=== PATIENT | female | born 1980 | race Caucasian/White ===

== ENCOUNTER 2019-04-22 15:30 | Emergency (ER) | payer BC, SELFPAY ==
[2019-04-22 16:55] VITALS: BP 141/82; PULSE 91; RESP 18; TEMP 37.6; O2SAT 99
--- NOTE | 2019-04-22 17:59 | ED.GENADULT ---
HPI - General Adult General Chief complaint: Upper Respiratory Infection Stated complaint: Swollen throat Time Seen by Provider: 04/22/19 17:59 Source: patient Mode of arrival: ambulatory Limitations: no limitations History of Present Illness HPI narrative: 38-year-old female patient presents to the [facility] with complaints of sore throat symptoms for the past 5 days. Patient states she started running a fever about 3 days ago. Patient states she is also had a lot of nasal drip and thought it could be her sinuses so she has been taking some [id number] sinus medication. Patient denies any coughing, chest pain or shortness of breath. Related Data Home Medications Medication Instructions Recorded Confirmed albuterol sulfate 90 mcg/actuation 1 puff INHALATION Q4H PRN 01/21/19 01/22/19 aerosol inhaler lansoprazole 15 mg capsule,delayed 15 mg PO DAILY 01/21/19 01/22/19 release loratadine 10 mg tablet 10 mg PO DAILY 01/21/19 01/22/19 trazodone 50 mg tablet 50 mg PO DAILY tablet 01/21/19 01/22/19 Allergies Allergy/AdvReac Type Severity Reaction Status Date / Time azithromycin Allergy Unknown Verified 01/27/15 09:31 clarithromycin Allergy Unknown Verified 01/27/15 09:30 Review of Systems Review of Systems: Narrative: CONSTITUTIONAL: Positive subjective fever, denies chills, or sweats. EYES: Denies visual changes, redness, or discharge. ENT: Positive rhinorrhea, denies congestion, positive sore throat, denies otalgia. CARDIOVASCULAR: Denies chest pain, palpitations, or edema. RESPIRATORY: Denies cough or dyspnea. GASTROINTESTINAL: Denies abdominal pain, nausea, vomiting, or diarrhea. GENITOURINARY: Denies dysuria or hematuria. SKIN: Denies rash or itching. MUSCULOSKELETAL: Denies back pain, joint pain, or myalgia. NEUROLOGIC: Denies headache, numbness, or weakness. PSYCHIATRIC: Denies anxiety or depression. [facility] Family History Family History Father Family history of elevated blood lipids Social History Social History Smoking status: Never smoker Alcohol intake: never Comments At the time of my signature I agree with nursing past medical history, surgical, social, and family history. There is no relevant family history pertinent to the presenting complaint. Exam Narrative: Exam Narrative: GENERAL: Well-appearing, well-nourished, and in no acute distress. HEAD: Normocephalic, atraumatic. EYES: PERRLA and EOMI. ENT: Nares clear, no rhinorrhea or epistaxis. Mucous membranes moist. Posterior pharynx with slight erythema no tonsil enlargement no exudates or lesions present. Bilateral TMs are clear with no erythema or foreign bodies canal NECK: Supple. No lymphadenopathy CHEST: Clear to auscultation. No respiratory distress. HEART: Regular rate and rhythm. No murmur heard. Normal peripheral pulses. ABDOMEN: Soft, nontender, nondistended, normal active bowel sounds. EXTREMITIES: Normal range of motion. No edema. SKIN: Warm, dry, no rash. NEURO: No focal deficits. Alert and oriented x3. Course Vital Signs Vital signs: Vital Signs Temperature 37.6 C 04/22/19 16:55 Pulse Rate 91 04/22/19 16:55 Respiratory Rate 18 04/22/19 16:55 Blood Pressure 141/82 H 04/22/19 16:55 Pulse Oximetry 99 04/22/19 16:55 Temperature 37.6 C 04/22/19 16:55 Pulse Rate 91 04/22/19 16:55 Respiratory Rate 18 04/22/19 16:55 Blood Pressure 141/82 H 04/22/19 16:55 Pulse Oximetry 99 04/22/19 16:55 Vital signs reviewed. The patient has been informed that they may have pre-hypertension or Hypertension based on a BP reading in the department. I recommend that the patient call the primary care provider listed on their discharge instructions or a physician of their choice this week to arrange follow up for further evaluation of possible pre-hypertension or Hypertension Medical Decision Making
== END 2019-04-22 18:14 | disposition home or self-care (01) ==
PROVIDERS: Emergency Provider Nurse Practitioner Family; PCP Internal Medicine
DX: J02.0 Streptococcal pharyngitis (principal); K21.9 Gastro-esophageal reflux disease without esophagitis
CPT/HCPCS: 87880; 99213; G0463

== ENCOUNTER 2021-09-20 15:36 | Emergency (ER) | payer BC, SELFPAY ==
[2021-09-20 15:46] VITALS: BP 145/96; PULSE 73; RESP 18; TEMP 36.8; O2SAT 99
--- NOTE | 2021-09-20 15:56 | ED.SOB ---
HPI - SOB/Dyspnea General Chief Complaint: Upper Respiratory Infection Stated Complaint: Bad Asthma Time Seen by Provider: 09/20/21 15:37 Source: patient Mode of arrival: ambulatory Limitations: no limitations History of Present Illness HPI Narrative: Ms. Pollock is a 41-year-old female patient presenting to the clinic today with complaints of asthma attack. She reports that her asthma has been worse since Saturday of last week. She has taken multiple COVID tests and they have all been negative. She reports she is having chest tightness and a nonproductive cough. She denies any fever or chills. She has been using her inhaler without relief Related Data Home Medications Medication Instructions Recorded Confirmed albuterol sulfate 90 mcg/actuation 1 puff inhalation Q4H PRN 01/21/19 09/20/21 aerosol inhaler (ProAir HFA) Shortness Of Breath Or Wheezing lansoprazole 15 mg capsule,delayed 15 mg PO DAILY 01/21/19 09/20/21 release (Prevacid) loratadine 10 mg tablet (Claritin) 10 mg PO DAILY 01/21/19 09/20/21 cetirizine 10 mg tablet (Zyrtec) 10 mg PO DAILY 09/20/21 09/20/21 Allergies Allergy/AdvReac Type Severity Reaction Status Date / Time azithromycin Allergy Unknown Verified 01/27/15 09:31 clarithromycin Allergy Unknown Verified 01/27/15 09:30 Review of Systems Review of Systems: Pertinent positives per HPI. Patient denies any fever, chills, rash, headache, visual changes, dizziness, chest pain, palpitations, nausea, vomiting, diarrhea, constipation, abdominal pain, or any urinary issues. PMFSH Family History Family History Father Family history of elevated blood lipids Social History Social History Smoking status: Never smoker Alcohol intake: never Comments At the time of my signature, I reviewed and agree with the nursing past medical, surgical, social, and family history. There is no relevant family history pertinent to the patient complaint. Exam Narrative: General: Well-developed, well nourished, in no apparent distress Head: Normocephalic, atraumatic Eyes: Pupils equally round and reactive to light bilaterally, EOM intact, sclera and conjunctive clear, no discharge, lids normal Ears: TMs intact and clear, ear canals clear, no drainage, grossly hearing normal. Nose: Nares patent, no discharge, no inflammation, no sinus tenderness. Mouth: Oral pharynx without lesions or masses, good dentition, MMM. Neck: Supple, trachea midline, no enlargement of anterior or posterior cervical nodes, no thyroid masses or goiter palpable. Cardio: Regular rate and rhythm, s1 and s2 normal, no murmur appreciated. Resp: Lung sounds tight, handheld DuoNeb treatment given, after treatment lungs are clear to auscultation bilaterally, no rhonchi, rales, wheezing or rubs Course Course Emergency Course: Portions of this record may have been created with voice recognition software. Level of Care: Express Care Visit Vital Signs Vital signs: Vital Signs Temperature 36.8 C 09/20/21 15:46 Pulse Rate 73 09/20/21 15:46 Respiratory Rate 18 09/20/21 15:46 Blood Pressure 145/96 H 09/20/21 15:46 Pulse Oximetry 99 09/20/21 15:46 Oxygen Delivery Room Air 09/20/21 15:46 Temperature 36.8 C 09/20/21 15:46 Pulse Rate 73 09/20/21 15:46 Respiratory Rate 18 09/20/21 15:46 Blood Pressure 145/96 H 09/20/21 15:46 Pulse Oximetry 99 09/20/21 15:46 Oxygen Delivery Room Air 09/20/21 15:46 Vital signs reviewed MDM - SOB/Dyspnea MDM Narrative Medical decision making narrative: At the time of visit patient is resting comfortably on the exam table. Lung sounds are tight. DuoNeb treatment was given in the clinic. I suspect the patient has asthma exacerbation and will give her a course of prednisone and she is to continue her albuterol inhaler and she voiced understanding
[2021-09-20] MEDS: IPRATROPIUM BR 0.02% INH SOLN 0.5 MG/2.5 ML VIAL INHALATION (16:07)
[2021-09-20] MEDS: ALBUTEROL SULFATE NEB 2.5 MG/3 ML INH INHALATION (16:07)
[2021-09-20 16:10] VITALS: PULSE 74; RESP 20; O2SAT 98
[2021-09-20 16:30] VITALS: PULSE 70; RESP 20; O2SAT 100
== END 2021-09-20 16:38 | disposition home or self-care (01) ==
PROVIDERS: Emergency Provider Nurse Practitioner Family; PCP Internal Medicine
DX: J45.901 Unspecified asthma with (acute) exacerbation (principal); K21.9 Gastro-esophageal reflux disease without esophagitis; M79.7 Fibromyalgia; M41.9 Scoliosis, unspecified
CPT/HCPCS: 94640; 99213; G0463

== ENCOUNTER → 2021-10-27 10:46 | Outpatient (CLI) | payer BC, SELFPAY ==
--- NOTE | ~2021-10-27 | MR_ITS ---
EXAMINATION: MR brain/brain stem wo con DATE: 10/27/2021 11:21 INDICATION: Loss of balance. Headache. TECHNIQUE: Magnetic resonance imaging (MRI) of the brain and brainstem was performed without intraven ous contrast. COMPARISON: None. FINDINGS: There are scattered areas of nonspecific increased T2-weighted signal intensity in the cere bral white matter. There is no intracranial hemorrhage, acute infarction, or abnormal intracranial ma ss lesion. The ventricles are normal in size. The mastoid air cells are normal. The orbits are normal . There is mucosal thickening in left sphenoid sinus. IMPRESSION: 1. Mild nonspecific cerebral white matter disease. The differential diagnosis includes premature delivery and mail sorter linh small vessel ischemic disease (especially if the patient has cardiovascular risk factors), demyel inating disease such as multiple sclerosis, drug abuse, vasculitis, or reactive astrocytosis (gliosis ) secondary to nonspecific etiology. Reviewed, dictated and finalized at location A. IMPRESSION: 1. Mild nonspecific cerebral white matter disease. The differential diagnosis i ncludes premature chronic small vessel ischemic disease (especially if the miguel ent has cardiovascular risk factors), demyelinating disease such as multiple sc lerosis, drug abuse, vasculitis, or reactive astrocytosis (gliosis) secondary t o nonspecific etiology.
== END ==
PROVIDERS: PCP Family Medicine; Visit Provider Family Medicine
DX: R42 Dizziness and giddiness (principal); R93.0 Abnormal findings on diagnostic imaging of skull and head, not elsewhere classified
CPT/HCPCS: 70551

== ENCOUNTER 2021-12-05 16:03 | Outpatient (CLI) | payer BC, SELFPAY ==
[2021-12-05 19:57] LABS: Basophils Absolute Auto 0.1 K/mm3 (0.0-0.1); Basophils Percent Auto 0.9 % (0.2-1.2); Eosinophils Absolute Auto 0.1 K/mm3 (0-0.3); Eosinophils Percent Auto 1.7 % (0-4.4); Hematocrit 44.5 % (37.0-47.0); Immature Granulocyte Absolute 0.02 K/mm3 (0.00-0.031); Immature Granulocyte Percent A 0.2 % (0-0.5); Lymphocytes Absolute Auto 1.94 K/mm3 (0.9-3.2); Lymphocytes Percent Auto 24.1 % (18.3-44.2); Mean Corpuscular HGB Conc 33.7 g/dl (32-36); Mean Corpuscular Hemoglobin 30.2 pg (26-34); Mean Corpuscular Volume 89.5 fl (80-100); Mean Platelet Volume 9.8 fl (7.4-10.4); Monocytes Absolute Auto 0.4 K/mm3 (0.1-0.6); Monocytes Percent Auto 4.5 % (2.6-8.5); Neutrophils Absolute Auto 5.5 K/mm3 (1.3-6.7); Neutrophils Percent Auto 68.6 % (45.5-73.1); Platelet Count Result 223 k/mm3 (150-375); Red Blood Count 4.97 M/mm3 (4.2-5.4); Red Cell Distribution Width 11.9 % (11.5-14.5)
[2021-12-05 20:28] LABS: Alanine Aminotransferase 29 U/L (6-35); Alkaline Phosphatase 67 U/L (38-126); Anion Gap 9 mmol/L (8-16); Aspartate Amino Transferase 23 U/L (14-36); Bilirubin,Total 0.4 mg/dL (0.2-1.3); Blood Urea Nitrogen 10 mg/dL (7-17); Calcium 9.4 mg/dL (8.4-10.2); Carbon Dioxide 26 mmol/L (22-30); Chloride 104 mmol/L (98-107); Cholesterol 189 mg/dL (0-200); Estimated Glomerular Filt Rate > 60; Glucose 96 mg/dL (65-110); HDL Direct 38 mg/dL; LDL Cholesterol Direct 123 mg/dL; Potassium 4.4 mmol/L (3.4-5.0); Sodium 139 mmol/L (137-145); Triglycerides 200 mg/dL (<150)
[2021-12-05 20:51] LABS: Hemoglobin A1C 4.8 % (<5.7)
[2021-12-05 22:49] LABS: Albumin Level 4.8 g/dL (3.5-5.1)
== END 2021-12-05 16:04 | disposition home or self-care (01) ==
LOC: ANHGOSHLAB 16:05
PROVIDERS: PCP Family Medicine; Visit Provider Family Medicine
DX: Z13.228 Encounter for screening for other metabolic disorders (principal); R53.83 Other fatigue; Z13.29 Encounter for screening for other suspected endocrine disorder; Z13.220 Encounter for screening for lipoid disorders; E66.9 Obesity, unspecified
CPT/HCPCS: 36415; 80053; 80061; 83036; 84443; 85025

== ENCOUNTER 2022-03-30 09:01 | Emergency (ER) | payer BC, SELFPAY ==
--- NOTE | 2022-03-30 09:02 | ED.URI ---
HPI - URI/Sore Throat General Chief Complaint: Upper Respiratory Infection Stated Complaint: sinus/breathing Time Seen by Provider: 03/30/22 09:02 Source: patient Mode of arrival: ambulatory Limitations: no limitations History of Present Illness HPI Narrative: Jose is a 41-year-old female patient presenting to the clinic today with complaints sinus congestion/shortness of breath x3 weeks. She reports she has history of asthma. States that she has had upper respiratory infection for the past few weeks and it has gone down into her chest. Rates her shortness of breath a 6/10 currently. States that she did do a breathing treatment this morning. She has a nonproductive cough. She denies any fever or chills. States she is blowing thick clear nasal drainage and denies any sinus pressure. Had COVID back in January. MD elicited complaint: cough, rhinorrhea, nasal congestion and other (Shortness of breath) Related Data Home Medications Medication Instructions Recorded Confirmed cetirizine 10 mg tablet (Zyrtec) 10 mg PO DAILY 09/20/21 03/30/22 cholecalciferol (vitamin D3) 75 75 mcg PO DAILY 01/19/22 03/30/22 mcg (3,000 unit) tablet iron,carbonyl 65 mg-vitamin C 125 1 tablet PO DAILY 01/19/22 03/30/22 mg tablet,delayed release (Vitron-C) Allergies Allergy/AdvReac Type Severity Reaction Status Date / Time azithromycin Allergy Unknown other Verified 03/30/22 09:17 clarithromycin Allergy Unknown Unknown Verified 03/30/22 09:17 Review of Systems Review of Systems: Pertinent positives per HPI. Patient denies any fever, chills, rash, headache, visual changes, dizziness, chest pain, palpitations, nausea, vomiting, diarrhea, constipation, abdominal pain, or any urinary issues. [facility] Family History Family History Father Family history of elevated blood lipids Social History Social History Smoking status: Never smoker Alcohol intake: current Substance use: never Substance use type: does not use Lack of Transportation: No Lack of Food: Never True Current Housing: I Have Housing Concerned About Future Housing: No Difficulty Paying Gas/Electric Bills: No Difficulty Paying for Meds: No Currently Unemployed: No Education: Bachelor's Degree Difficulty w/ Childcare or Family Care: No Living arrangements: with family Occupation/Education: occupation Gender identity (if verbalized by the patient): Female Agree to blood products: Yes Comments At the time of my signature, I reviewed and agree with the nursing past medical, surgical, social, and family history. There is no relevant family history pertinent to the patient complaint. Exam Narrative: General: Well-developed, well nourished, in no apparent distress Head: Normocephalic, atraumatic Eyes: Pupils equally round and reactive to light bilaterally, EOM intact, sclera and conjunctive clear, no discharge, lids normal Ears: TMs intact and clear, ear canals clear, no drainage, grossly hearing normal. Nose: Nares patent,clear nasal discharge, no inflammation, no sinus tenderness. Mouth: Oral pharynx without lesions or masses, good dentition, MMM. Postnasal drip Neck: Supple, trachea midline, no enlargement of anterior or posterior cervical nodes, no thyroid masses or goiter palpable. Cardio: Regular rate and rhythm, s1 and s2 normal, no murmur appreciated. Resp: Diminished in the bases otherwise clear, no rhonchi, rales, wheezing or rubs Course Course Emergency Course: Portions of this record may have been created with voice recognition software. Level of Care: Express Care Visit Vital Signs Vital signs: Vital Signs Temperature 36.8 C 03/30/22 09:09 Pulse Rate 82 03/30/22 09:09 Respiratory Rate 16 03/30/22 09:09 Blood Pressure 141/86 H 03/30/22 09:09 Pulse Oximetry 100 03/30/22 09:09 O
[2022-03-30 09:09] VITALS: BP 141/86; PULSE 82; RESP 16; TEMP 36.8; O2SAT 100
== END 2022-03-30 09:25 | disposition home or self-care (01) ==
PROVIDERS: Emergency Provider Nurse Practitioner Family; PCP Family Medicine
DX: J06.9 Acute upper respiratory infection, unspecified (principal); J45.901 Unspecified asthma with (acute) exacerbation
CPT/HCPCS: 99213; G0463

== ENCOUNTER 2022-05-11 12:01 | Emergency (ER) | payer BC, SELFPAY ==
[2022-05-11 12:09] VITALS: BP 134/83; PULSE 78; RESP 12; TEMP 36.4; O2SAT 100
--- NOTE | 2022-05-11 12:09 | ED.URI ---
HPI - URI/Sore Throat General Chief Complaint: Upper Respiratory Infection Stated Complaint: sinus pressure, cough,congestion,headache Source: patient and RN notes reviewed Mode of arrival: ambulatory Limitations: no limitations History of Present Illness HPI Narrative: 42 y/o female presented for c/o chest congestion for about 3 days, endorses occasional lung tightness r/t hx asthma. Pt also reports sinus congestion and drainage with dry cough for about one week. Pt tested negative for covid at home 3 days ago. Patient has albuterol inhaler, nebulizer machine, she uses Flonase and saline nasal spray, as well as antihistamines due to history of allergies and asthma. She denies wheezing, dizziness, chest pain, lethargy, fevers or chills. MD elicited complaint: cough Related Data Home Medications Medication Instructions Recorded Confirmed cetirizine 10 mg tablet (Zyrtec) 10 mg PO DAILY 09/20/21 05/11/22 cholecalciferol (vitamin D3) 75 75 mcg PO DAILY 01/19/22 05/11/22 mcg (3,000 unit) tablet iron,carbonyl 65 mg-vitamin C 125 1 tablet PO DAILY 01/19/22 05/11/22 mg tablet,delayed release (Vitron-C) Allergies Allergy/AdvReac Type Severity Reaction Status Date / Time azithromycin Allergy Unknown other Verified 03/30/22 09:17 clarithromycin Allergy Unknown Unknown Verified 03/30/22 09:17 Review of Systems Review of Systems: CONSTITUTIONAL: Denies malaise, chills, sweats, fever EYES: Denies visual changes, redness, or discharge ENT: Reports rhinorrhea, congestion, sinus pain, denies otalgia, sore throat CARDIOVASCULAR: Denies chest pain, palpitations, edema RESPIRATORY: Reports cough, post nasal drainage. Denies dyspnea GASTROINTESTINAL: Denies abdominal pain, nausea, vomiting, diarrhea SKIN: Denies rash or itching MUSCULOSKELETAL: Denies myalgia NEUROLOGIC: Denies headache PMFSH Past Medical History Medical History Mild persistent asthma Family History Family History Father Family history of elevated blood lipids Social History Social History Smoking status: Never smoker Alcohol intake: current Substance use: never Substance use type: does not use Lack of Transportation: No Lack of Food: Never True Current Housing: I Have Housing Concerned About Future Housing: No Difficulty Paying Gas/Electric Bills: No Difficulty Paying for Meds: No Currently Unemployed: No Education: Bachelor's Degree Difficulty w/ Childcare or Family Care: No Living arrangements: with family Occupation/Education: occupation Gender identity (if verbalized by the patient): Female Agree to blood products: Yes Exam Narrative: GENERAL: well-appearing HEAD: Normocephalic EYES: PERRLA, conjunctivae clear ENT: Mucous membranes moist. TM pearly sanchez with dull light reflex bilaterally; no tragal tenderness. Oropharynx normal without lesions or exudate NECK: Supple. No lymphadenopathy CHEST: Clear to auscultation, breath sounds equal. No wheezing, rhonchi, rales, or stridor. No respiratory distress, speaks in full sentences. HEART: Regular rate and rhythm. No murmur heard. SKIN: Warm, dry, no rash. NEURO: Alert and oriented x3. PSYCH: Normal mood and affect Course Course Emergency Course: Patient is aware of diagnosis, understands and agrees to treatment plan. Anticipatory guidance given. Patient agrees to follow-up as directed and is aware of reasons to seek care at the emergency department. Portions of this record may have been created with voice recognition software Level of Care: Express Care Visit Vital Signs Vital signs: reviewed MDM - URI/Sore Throat MDM Narrative Medical decision making narrative: Given hx will send Rx steroid. Advised supportive measures and signs/symptoms to go to the ER. Pt is appropriate fo
== END 2022-05-11 12:30 | disposition home or self-care (01) ==
PROVIDERS: Emergency Provider Nurse Practitioner Family; PCP Internal Medicine
DX: J06.9 Acute upper respiratory infection, unspecified (principal)
CPT/HCPCS: 99213; G0463

== ENCOUNTER 2022-06-14 15:47 | Outpatient (CLI) | payer BC, SELFPAY ==
[2022-06-14 20:31] LABS: Kit Draw Collected
== END 2022-06-14 15:48 | disposition home or self-care (01) ==
LOC: ANHGOSHLAB 15:48
PROVIDERS: PCP Internal Medicine; Visit Provider Clinical Nurse Specialist
DX: E55.9 Vitamin D deficiency, unspecified (principal); M79.7 Fibromyalgia
CPT/HCPCS: 36415

== ENCOUNTER 2022-07-11 15:33 | Outpatient (CLI) | payer BC, SELFPAY ==
--- NOTE | ~2022-07-11 | MM_ITS ---
EXAMINATION: MM screening lupe BI w markel HISTORY: Screening mammogram TECHNIQUE: Craniocaudal and mediolateral oblique 3-D tomosynthesis images were obtained and synthetic 2-D images were generated. CAD analysis was submitted and interpreted. COMPARISON: None, baseline BREAST PARENCHYMAL COMPOSITION: The breasts are extremely dense, which lowers the sensitivity of mamm ography. FINDINGS: No suspicious mass, calcification, or architectural distortion are identified in either indio ast to suggest malignancy. IMPRESSION: 1. No mammographic evidence of malignancy. 2. Recommend routine screening mammography in one year. BI-RADS Category 1: Negative Reviewed, dictated and finalized at location A.
== END 2022-07-11 15:34 | disposition home or self-care (01) ==
LOC: ANHIMG 15:36
PROVIDERS: PCP Internal Medicine; Visit Provider Surgery Plastic and Reconstructive Surgery
DX: Z12.31 Encounter for screening mammogram for malignant neoplasm of breast (principal)
CPT/HCPCS: 77063; 77067

== ENCOUNTER 2022-07-18 16:04 | Emergency (ER) | payer BC, SELFPAY ==
[2022-07-18 16:10] VITALS: BP 127/82; PULSE 82; RESP 16; TEMP 36.4; O2SAT 99
--- NOTE | 2022-07-18 16:40 | ED.URI ---
HPI - URI/Sore Throat General Chief Complaint: Upper Respiratory Infection Stated Complaint: SINUS/ALLERGIES/ASTHMA/EARS Time Seen by Provider: 07/18/22 16:32 Source: patient, RN notes reviewed and old records reviewed Mode of arrival: ambulatory Limitations: no limitations History of Present Illness HPI Narrative: 42 year old female who presents to [facility] care with complaints of sinus congestion, drainage, sore throat , chest tightness with breathing and ear pain for the past 10 days. Patient reports that she was diagnosed with COVID on June 29 and those symptoms resolved and then her other symptoms started. Patient does have history of asthma and has been using her inhaler and nebulizer, taking Claritin, Mucinex and also NyQuil. Patient reports that her cough is dry, nasal congestion and drainage and post nasal drainage noted making her throat sore especially in the mornings. Patient reports pressure to ear especially her left ear with no ear drainage noted. Patient denies any known fevers, body aches, or any headaches, no nausea, vomiting, or diarrhea. MD elicited complaint: rhinorrhea, nasal congestion, sinus pain and other (ear pain pressure) Pertinent past history: asthma and seasonal allergies Onset (ago): day(s) (10) Pain scale (0-10): 7 Able to tolerate fluids by mouth: Yes Treatments prior to arrival: other (inhaler and nebulizer, Claritin,Mucinex and NyQuil) Related Data Home Medications Medication Instructions Recorded Confirmed cetirizine 10 mg tablet (Zyrtec) 10 mg PO DAILY 09/20/21 07/18/22 cholecalciferol (vitamin D3) 75 75 mcg PO DAILY 01/19/22 07/18/22 mcg (3,000 unit) tablet iron,carbonyl 65 mg-vitamin C 125 1 tablet PO DAILY 01/19/22 07/18/22 mg tablet,delayed release (Vitron-C) Allergies Allergy/AdvReac Type Severity Reaction Status Date / Time azithromycin Allergy Unknown other Verified 07/18/22 16:24 clarithromycin Allergy Unknown Unknown Verified 07/18/22 16:24 Review of Systems Review of Systems: CONSTITUTIONAL: Denies malaise, chills, sweats, or fever. EYES: Denies visual changes, redness, or discharge. ENT: Reports rhinorrhea, congestion, sinus pain, otalgia and sore throat. CARDIOVASCULAR: Denies chest pain, palpitations, or edema. RESPIRATORY: Reports cough.? Denies dyspnea states some chest tightness history of asthma GASTROINTESTINAL: Denies abdominal pain, nausea, vomiting, diarrhea SKIN: Denies rash or itching. MUSCULOSKELETAL: Denies myalgia. NEUROLOGIC: Denies headache. All systems reviewed & are unremarkable except as noted in HPI and below PMFSH Past Medical History Medical History Lower abdominal pain of unknown etiology Mild persistent asthma Family History Family History Father Family history of elevated blood lipids Social History Social History Smoking status: Never smoker Alcohol intake: current Substance use: never Substance use type: does not use Lack of Transportation: No Lack of Food: Never True Current Housing: I Have Housing Concerned About Future Housing: No Difficulty Paying Gas/Electric Bills: No Difficulty Paying for Meds: No Currently Unemployed: No Education: Bachelor's Degree Difficulty w/ Childcare or Family Care: No Living arrangements: with family Occupation/Education: occupation Gender identity (if verbalized by the patient): Female Agree to blood products: Yes Comments At time of signature, agree with nursing past medical, surgical, social and family history. There is no relevant family history pertinent to the presenting complaint Exam Narrative: GENERAL: Well-appearing, well-nourished, and in no acute distress. HEAD: Normocephalic EYES: PERRLA, conjunctivae clear ENT: Nares clear, turbinates edematous and eryth
== END 2022-07-18 17:05 | disposition home or self-care (01) ==
PROVIDERS: Emergency Provider Registered Nurse; PCP Internal Medicine
DX: J01.40 Acute pansinusitis, unspecified (principal); H65.02 Acute serous otitis media, left ear; J45.909 Unspecified asthma, uncomplicated
CPT/HCPCS: 99213; G0463

== ENCOUNTER 2022-07-30 15:00 | Emergency (ER) | payer BC, SELFPAY ==
[2022-07-30 15:04] VITALS: BP 153/85; PULSE 77; RESP 20; TEMP 36.8; O2SAT 100
--- NOTE | 2022-07-30 15:20 | ED.URI ---
HPI - URI/Sore Throat General Chief Complaint: Upper Respiratory Infection Stated Complaint: Shortness Of Breath History of Present Illness HPI Narrative: PATIENT PRESENTS WITH OCCASIONAL WHEEZING. NO SHORTNESS OF BREATH NO CHEST PAIN. PATIENT STATES SHE JUST FINISHED AUGMENTIN FOR BILATERAL EAR INFECTION AND CONTINUES TO FEELS THAT SHE GETS SHORT OF BREATH AT TIMES. PATIENT STATES SHE HAS A HISTORY OF ASTHMA AND WONDERS IF SHE NEEDS A SORE COURSE OF STEROIDS TO RESOLVE HER FEELINGS OF SHORTNESS OF BREATH. Related Data Home Medications Medication Instructions Recorded Confirmed cetirizine 10 mg tablet (Zyrtec) 10 mg PO DAILY 09/20/21 07/30/22 cholecalciferol (vitamin D3) 75 75 mcg PO DAILY 01/19/22 07/30/22 mcg (3,000 unit) tablet iron,carbonyl 65 mg-vitamin C 125 1 tablet PO DAILY 01/19/22 07/30/22 mg tablet,delayed release (Vitron-C) Allergies Allergy/AdvReac Type Severity Reaction Status Date / Time azithromycin Allergy Unknown other Verified 07/30/22 15:15 clarithromycin Allergy Unknown Unknown Verified 07/30/22 15:15 Review of Systems Review of Systems: CONSTITUTIONAL: DENIES CHILLS, OR SWEATS. REPORTS FEVER AND GENERALIZED BODY ACHES EYES: DENIES VISUAL CHANGES, REDNESS, OR DISCHARGE. ENT: DENIES OTALGIA. REPORTS NASAL CONGESTION RUNNY NOSE AND SORE THROAT CARDIOVASCULAR: DENIES CHEST PAIN, PALPITATIONS, OR EDEMA. RESPIRATORY: DENIES DYSPNEA. REPORTS OCCASIONAL COUGH GASTROINTESTINAL: DENIES ABDOMINAL PAIN, NAUSEA, VOMITING, OR DIARRHEA. GENITOURINARY: DENIES DYSURIA OR HEMATURIA. SKIN: DENIES RASH OR ITCHING. MUSCULOSKELETAL: DENIES BACK PAIN, JOINT PAIN, OR MYALGIA. REPORTS GENERALIZED BODY ACHES NEUROLOGIC: DENIES HEADACHE, NUMBNESS, OR WEAKNESS. PSYCHIATRIC: DENIES ANXIETY OR DEPRESSION. [facility] Past Medical History Medical History Lower abdominal pain of unknown etiology Mild persistent asthma Family History Family History Father Family history of elevated blood lipids Social History Social History Smoking status: Never smoker Alcohol intake: current Substance use: never Substance use type: does not use Lack of Transportation: No Lack of Food: Never True Current Housing: I Have Housing Concerned About Future Housing: No Difficulty Paying Gas/Electric Bills: No Difficulty Paying for Meds: No Currently Unemployed: No Education: Bachelor's Degree Difficulty w/ Childcare or Family Care: No Living arrangements: with family Occupation/Education: occupation Gender identity (if verbalized by the patient): Female Agree to blood products: Yes Comments MY PAST 2 YEARS HISTORY AT TIME OF SIGNATURE, AGREE WITH NURSING PAST MEDICAL, SURGICAL, SOCIAL AND FAMILY HISTORY. THERE IS NO RELEVANT FAMILY HISTORY PERTINENT TO THE PRESENTING COMPLAINT Exam Narrative: THE PATIENT IS A WELL-DEVELOPED, WELL-NOURISHED IN NO ACUTE DISTRESS. SKIN: SKIN IS WARM AND DRY WITHOUT ERYTHEMA, SWELLING OR EXUDATE. THERE IS GOOD TURGOR. NO TENTING. HEAD: ATRAUMATIC. NORMOCEPHALIC. NO TEMPORAL OR SCALP TENDERNESS. EYES: MOIST AND BRIGHT. SCLERA AND CONJUNCTIVAE NORMAL. NO DISCHARGE. PERRLA. EXTRAOCULAR MOTIONS INTACT. GROSS VISUAL ACUITY INTACT. EARS: PINNA IS NORMAL SHAPE AND CONTOUR. CLEAR EXTERNAL AUDITORY CANALS. TM PEARLY CAVAZOS WITH GOOD CONE OF LIGHT, NO ERYTHEMA OR SUPPURATION. BILATERAL CERUMEN NOTED NO GROSS HEARING DEFICIT. NOSE: PINK, MOIST MUCOSA WITH GOOD AIR MOVEMENT. CLEAR RHINORRHEA WITHOUT NASAL FLARING. SEPTUM MIDLINE. MOUTH: MOIST MUCOUS MEMBRANES. THROAT; MILD ERYTHEMA NOTED TO POSTERIOR OROPHARYNX WITH MODERATE POSTNASAL DRAINAGE. WITHOUT EXUDATE OR ULCERATION.. UVULA MIDLINE. NORMAL MOVEMENT OF SOFT PALATE. NECK: SUPPLE AND NONTENDER WITH FULL RANGE OF MOTION WITHOUT DISCOMFORT. NO MENINGEAL SI
== END 2022-07-30 15:28 | disposition home or self-care (01) ==
PROVIDERS: Emergency Provider Nurse Practitioner Family; PCP Internal Medicine
DX: J45.909 Unspecified asthma, uncomplicated (principal)
CPT/HCPCS: 99213; G0463

== ENCOUNTER → 2022-08-02 14:07 | Outpatient (CLI) | payer BC, SELFPAY ==
--- NOTE | ~2022-08-02 | XR_ITS ---
EXAMINATION: XR chest 2V Exam Date/Time: 08/02/2022 14:09 CDT HISTORY: sob cough Comparison: None. RESULT: Lines, tubes, and devices: None. Lungs and pleura: Clear. Cardiomediastinal silhouette: Normal. Other: No acute osseous or upper abdominal finding. IMPRESSION: No acute cardiopulmonary process. Reviewed, dictated and finalized at location K.
== END ==
PROVIDERS: PCP Internal Medicine; Visit Provider Nurse Practitioner
DX: R06.02 Shortness of breath (principal); R05.9 Cough, unspecified
CPT/HCPCS: 71046

== ENCOUNTER 2022-08-03 14:40 | Outpatient (CLI) | payer BC, SELFPAY ==
[2022-08-03 16:19] LABS: Basophils Percent Auto 0.2 % (0.2-1.2); Eosinophils Percent Auto 0.1 % (0-4.4); Hematocrit 41.7 % (37.0-47.0); Hemoglobin 13.6 g/dL (12.0-15.0); Immature Granulocyte Absolute 0.13 K/mm3 (0.00-0.031); Immature Granulocyte Percent A 1.1 % (0-0.5); Lymphocytes Absolute Auto 1.04 K/mm3 (0.9-3.2); Lymphocytes Percent Auto 8.6 % (18.3-44.2); Mean Corpuscular HGB Conc 32.6 g/dl (32-36); Mean Corpuscular Hemoglobin 29.1 pg (26-34); Mean Corpuscular Volume 89.1 fl (80-100); Mean Platelet Volume 9.9 fl (7.4-10.4); Monocytes Absolute Auto 0.2 K/mm3 (0.1-0.6); Monocytes Percent Auto 1.3 % (2.6-8.5); Neutrophils Absolute Auto 10.8 K/mm3 (1.3-6.7); Neutrophils Percent Auto 88.7 % (45.5-73.1); Platelet Count Result 244 k/mm3 (150-375); Red Blood Count 4.68 M/mm3 (4.2-5.4); Red Cell Distribution Width 12.3 % (11.5-14.5); White Blood Count 12.2 K/mm3 (4.5-10.0)
[2022-08-03 16:55] LABS: Alanine Aminotransferase 25 U/L (6-35); Albumin Level 4.4 g/dL (3.5-5.1); Alkaline Phosphatase 79 U/L (38-126); Anion Gap 8 mmol/L (8-16); Aspartate Amino Transferase 45 U/L (14-36); Bilirubin,Total 0.5 mg/dL (0.2-1.3); Blood Urea Nitrogen 17 mg/dL (7-17); Calcium 8.7 mg/dL (8.4-10.2); Carbon Dioxide 27 mmol/L (22-30); Chloride 103 mmol/L (98-107); Estimated Glomerular Filt Rate > 60; Glucose 175 mg/dL (65-110); Potassium 4.2 mmol/L (3.4-5.0); Sodium 138 mmol/L (137-145)
== END 2022-08-03 14:41 | disposition home or self-care (01) ==
LOC: ANHGOSHLAB 14:42
PROVIDERS: PCP Internal Medicine; Visit Provider Nurse Practitioner
DX: R06.02 Shortness of breath (principal); Z13.29 Encounter for screening for other suspected endocrine disorder
CPT/HCPCS: 36415; 80053; 85025

== ENCOUNTER 2022-08-30 02:25 | Day surgery (SDC) | payer OTHER, SELFPAY ==
[2022-08-22 08:36] VITALS: BMI 34.0
--- NOTE | 2022-08-22 08:41 | PC.NURSE ---
Report to the Outpatient Waiting Room, entrance under the green pavilion located off [facility], at time 0600 on date 08/30/22. Planned Procedure Time: 0730. Time changes happen often and if your time is changed the preop area will call you the afternoon before. - You and your visitor will be asked to self-screen and do not enter if you have any COVID symptoms. - A mask is optional within the hospital at this time. Patients may have clear liquids (water, carbonated beverages, clear teas, apple juice) until 3 hours prior to surgery with a maximum of 20 ounces. - No food from midnight until time of surgery Take the following medications with a SIP of water the morning of surgery: INHALER IF NEEDED DO NOT STOP ANY OF YOUR OTHER PRESCRIPTION MEDICATIONS PRIOR TO SURGERY ?EXCEPT THE FOLLOWING Medications to discontinue per physician: VITAMINS/SUPPLEMENTS Date to take last dose: 08/26/22 Please no make-up, nail telugu, hairspray, perfume, deodorant, or body powder the day of surgery. No jewelry (including any body piercings) or valuables the day of surgery, leave them at home. Please take a shower or bath the night before, or the morning of, surgery with an antibacterial soap. Wear comfortable, loose fitting clothing. - Jewelry must be removed prior to entering the operating room. Rings and piercings that are not removed may be cut off. - The hospital will not accept responsibility for valuables. - Please leave all valuables, including medications, at home the day of surgery. If you are going home after surgery, a licensed regional otr company driver must drive you home. - NO public transportation without another adult if you receive anesthesia. - We recommend that an adult stay with you for 24 hours following discharge. - We also recommend that you do not drive, make important decision, drink alcoholic beverages, or take any drugs that were not prescribed by your health care provider for at least 24 hours after your discharge time. Follow any additional instructions given to you from your surgeon. If you or anyone in your household have experienced Covid symptoms in the past week, please notify your surgeon or the nurse liaison at the phone number below for possible testing. Telephone instructions given to PT - EDDIE VIEIRA and asked if any additional questions and then verbalized understanding. Patient advised to call surgeon office or pre surgery nurse liaison [phone] if any additional questions.
[2022-08-30] VITALS (16 sets, daily range): BP systolic 120–155; BP diastolic 69–92; PULSE 64–90; RESP 12–18; TEMP 36–36.3; O2SAT 92–100
--- NOTE | 2022-08-30 06:34 | WPDANESEPPF ---
Anes - Initial Pre Proc Eval Procedure: Operation Date: 08/30/22 07:30 Proposed Procedures p Bilateral Breast Reduction - Rogelio Nguyen MD Date/Time: 08/30/22 06:34 Surgeon: Rogelio Nguyen MD Pre Op Diagnosis: macromastia Patient Data Age: 42 Gender: F Height: 1.57 m Weight: 84.4 kg Allergies Allergy/AdvReac Type Severity Reaction Status Date / Time azithromycin Allergy Unknown other Verified 08/22/22 08:33 clarithromycin Allergy Unknown Unknown Verified 08/22/22 08:33 Home Medications Medication Instructions Recorded Confirmed Type cetirizine 10 mg tablet (Zyrtec) 10 mg PO DAILY 09/20/21 08/22/22 History cholecalciferol (vitamin D3) 75 75 mcg PO DAILY 01/19/22 08/22/22 History mcg (3,000 unit) tablet iron,carbonyl 65 mg-vitamin C 125 1 tablet PO DAILY 01/19/22 08/22/22 History mg tablet,delayed release (Vitron-C) albuterol sulfate 2.5 mg/3 mL 2.5 mg (3 mL) inhalation Q4-6H PRN 01/30/22 08/22/22 Rx (0.083 %) solution for nebulization shortness of breath or wheezing #75 mL albuterol sulfate 90 mcg/actuation 1 puff inhalation Q4H PRN 01/30/22 08/22/22 Rx aerosol inhaler (ProAir HFA) Shortness Of Breath Or Wheezing #6.7 grams lovastatin 10 mg tablet 10 mg PO DAILY #90 tabs 06/22/22 08/22/22 Rx fluticasone propionate 110 2 puff inhalation Q12H #12 grams 07/30/22 08/22/22 Rx mcg/actuation HFA aerosol inhaler (Flovent HFA) lansoprazole 15 mg capsule,delayed 15 mg PO BID 08/02/22 08/22/22 History release loratadine 10 mg tablet (Claritin) 10 mg PO DAILY 08/02/22 08/22/22 History Bifidobacterium infantis 10.5 mg 10.5 mg PO HS 08/22/22 08/22/22 History (10 million cell) chewable tablet (Align) multivitamin 1 tablet PO DAILY 08/22/22 08/22/22 History Laboratory Tests 08/30/22 06:19 Cotinine Pending Patient hx anesthesia problems: none Family hx anesthesia problems: none Results Review: All pre-operative results and documents have been reviewed as part of the pre-operative evaluation. [facility] Past Medical History Medical History Lower abdominal pain of unknown etiology Mild persistent asthma Surgical History Surgical History (Updated 08/30/22 @ 06:34 by Kimani Montanez MD) H/O wisdom tooth extraction History of D&C Family History Family History Father Family history of elevated blood lipids Social History Social History Smoking status: Never smoker Alcohol intake: current Drinks per week: 2 Substance use: never Substance use type: does not use Lack of Transportation: No Lack of Food: Never True Current Housing: I Have Housing Concerned About Future Housing: No Difficulty Paying Gas/Electric Bills: No Difficulty Paying for Meds: No Currently Unemployed: No Education: Bachelor's Degree Difficulty w/ Childcare or Family Care: No Living arrangements: with family Occupation/Education: occupation Gender identity (if verbalized by the patient): Female Spiritual care concerns: No Agree to blood products: Yes Anes - Eval Final PreProcedure Day of Procedure 08/30/22 06:34 Patient weight: obese Heart: regular rate and rhythm Lungs: clear to auscultation Airway: Mallampati scale class II Neurological: alert and oriented Last oral intake: >/= 8 hours ASA classification: II Emergent: no Anesthetic plan: proceed Anesthesia type and monitoring: general ETT and standard monitoring Results Review: All pre-operative results and documents have been reviewed as part of the pre-operative evaluation. Informed Consent: The patient's anesthetic plan and its attendant risks and benefits were discussed with the patient/family/POA. Questions were solicited and answers provided to the satisfaction of the patient/family/POA.
[2022-08-30] MEDS: SCOPOLAMINE 1.5 MG PATCH TRANSDERM (06:42)
[2022-08-30] MEDS: LACTATED RINGERS 1,000 ML 30 ML IV CONT ×3 (06:42→12:08)
[2022-08-30 06:51] LABS: Urine Cotinine NEGATIVE
--- NOTE | 2022-08-30 07:33 | WPDHPUPDATE1 ---
History and Physical Update Update Date/Time: 08/30/22 07:33 History and Physical has been reviewed, including an updated exam of the patient. There are NO changes in the patient's condition. Risks, benefits, and alternatives have been discussed and questions answered. Patient agrees to proceed with procedure.
--- NOTE | 2022-08-30 07:34 | P.OP_ITS ---
Procedure Note - Detailed Date of Procedure 08/30/22 Pre-op Diagnosis macromastia Post-op Diagnosis Same Procedure Performed Bilateral reduction mammaplasty Surgeon Rogelio Nguyen MD Anesthesia General Findings Inverted T Superior medial pedicle Tissue removed: Right: 451 grams Left: 511 grams Description of Procedure She is here today for bilateral breast reduction. Previously and again today the risks, benefits, alternatives were discussed in extensive detail. I wanted her to be very realistic about the risks involved as well as expectations. We discussed aftercare and what to monitor for. She understands we can never guarantee final breast size and there will always be asymmetry. I was very upfront and honest about the risks of sensation change and even nipple loss (). Made sure answered all of her questions to her satisfaction today and consent was obtained. She was marked in the preoperative holding area with their verification. The patient was taken to the operating room placed supine on the operating table. Anesthesia was provided by anesthesiology. She was prepped and draped in a standard sterile fashion. A surgical time-out was taken. Stab incisions were made and I tumessed with a tumescent solution. I marked out the nipple-areolar complex at 42 mm. I then de-epithelialized the pedicle. The pedicle was well left well more than 2 cm in thickness. I then removed the inferior portion of the breast as well as the central keel to get shape based on preoperative planning. At this point copiously irrigated with saline solution and verified a strict hemostasis. I reapproximated the pillars using a 2-0 PDS. I tailor tacked the breast into place with melvi. She was placed in a sitting position. I verified the nipple-areolar complex position based on preoperative markings, intraoperative measurements, and observation which were in full agreement. This nipple-areolar complex was marked at 42 mm in size. I then placed supine and de-epithelialized this. Nipple-areolar complex was inset with 3-0 Monocryl. I closed IMF deep with 1 strattafix. I closed the vertical incision with 3-0 Monocryl in the IMF with 3- 0 stratafix. Then everything was closed using a running subcuticular 4-0 Monocryl followed by Steri-Strips. A dressing was placed followed by surgical bra. Patient was awoke and taken to PACU without difficulty. All instrument sponge counts were correct at the end of the case. Estimated Blood Loss 75 Drains No Packing No Pathology Yes (Bilateral breast tissue) Complications No immediate complications Condition Stable Disposition PACU
[2022-08-30] MEDS: ceFAZolin 2 GM/D5W 50 ML 2 GM/50 ML BAG IVPB (07:42)
[2022-08-30] MEDS: LACTATED RINGERS IRRIG 1,000 ML, LIDOCAINE HCL 1% LOCAL INJ 50 ML, EPINEPHrine HCL INJ ... INFILTRATE (07:42)
[2022-08-30] MEDS: TRANEXAMIC ACID 1,000MG/ISO100 1,000 MG/100 ML BAG 200 MG IVPB (07:55)
--- NOTE | 2022-08-30 08:38 | SUR.OPER ---
Dilaudid removed from recovery room pyxsis for this patient and given to anesthesia, removed by eduardo recovery room nurse
[2022-08-30] MEDS: fentaNYL CITRATE INJ (*CRX) 100 MCG/2 ML VIAL 25 MCG IV PUSH ×4 (10:50→11:16)
[2022-08-30] MEDS: ONDANSETRON INJ 4 MG/2 ML VIAL IV PUSH (11:36)
[2022-08-30] MEDS: DEXAMETHASONE SOD PHOS INJ 4 MG/ML VIAL 8 MG IV PUSH (12:19)
[2022-08-30] MEDS: oxyCODONE HCL (*CRX) 5 MG TAB IR PO (12:22)
== END 2022-08-30 14:38 | disposition home or self-care (01) ==
PROVIDERS: PCP Internal Medicine; Visit Provider Surgery Plastic and Reconstructive Surgery
PROC: 0HBV0ZZ Excision of Bilateral Breast, Open Approach (ICD-10-PCS; CPT 19318; principal; 2022-08-30 07:30)
DX: N62 Hypertrophy of breast (principal); J45.30 Mild persistent asthma, uncomplicated; Z79.51 Long term (current) use of inhaled steroids; E66.9 Obesity, unspecified; Z68.33 Body mass index [BMI] 33.0-33.9, adult
CPT/HCPCS: 19318; 80307; 88305; A9270; J0171; J0330; J0690; J1100; J1170; J1200; J2250; J2270; J2405; J2704; J2710; J3010; J7120

== ENCOUNTER 2023-07-25 08:00 | Outpatient (CLI) | payer BC, SELFPAY ==
[2023-07-25 20:04] LABS: Basophils Absolute Auto 0.1 K/mm3 (0.0-0.1); Basophils Percent Auto 0.4 % (0.2-1.2); Eosinophils Percent Auto 0.3 % (0-4.4); Hematocrit 44.1 % (37.0-47.0); Hemoglobin 14.1 g/dL (12.0-15.0); Immature Granulocyte Absolute 0.12 K/mm3 (0.00-0.031); Immature Granulocyte Percent A 0.8 % (0-0.5); Lymphocytes Absolute Auto 1.58 K/mm3 (0.9-3.2); Lymphocytes Percent Auto 10.9 % (18.3-44.2); Mean Corpuscular Hemoglobin 28.7 pg (26-34); Mean Corpuscular Volume 89.8 fl (80-100); Mean Platelet Volume 9.8 fl (7.4-10.4); Monocytes Absolute Auto 0.8 K/mm3 (0.1-0.6); Monocytes Percent Auto 5.2 % (2.6-8.5); Neutrophils Percent Auto 82.4 % (45.5-73.1); Platelet Count Result 240 k/mm3 (150-375); Red Blood Count 4.91 M/mm3 (4.2-5.4); White Blood Count 14.6 K/mm3 (4.5-10.0)
[2023-07-25 23:01] LABS: Cholesterol 170 mg/dL (0-200); HDL Direct 40 mg/dL; Triglycerides 158 mg/dL (<150)
[2023-07-25 23:02] LABS: Alanine Aminotransferase 14 U/L (6-35); Albumin Level 4.6 g/dL (3.5-5.1); Alkaline Phosphatase 68 U/L (38-126); Anion Gap 8 mmol/L (4-12); Aspartate Amino Transferase 29 U/L (14-36); Bilirubin,Total 0.5 mg/dL (0.2-1.3); Blood Urea Nitrogen 9 mg/dL (7-17); Carbon Dioxide 24 mmol/L (22-30); Chloride 106 mmol/L (98-107); Estimated Glomerular Filt Rate > 60; Glucose 91 mg/dL (65-110); Sodium 138 mmol/L (137-145)
[2023-07-25 23:13] LABS: LDL Cholesterol Direct 103 mg/dL
== END 2023-07-25 08:01 | disposition home or self-care (01) ==
PROVIDERS: Nurse Practitioner; PCP Internal Medicine; Visit Provider Internal Medicine Cardiovascular Disease
DX: Z13.29 Encounter for screening for other suspected endocrine disorder (principal); R06.02 Shortness of breath; E78.5 Hyperlipidemia, unspecified
CPT/HCPCS: 36415; 80053; 80061; 85025

== ENCOUNTER 2024-09-28 18:46 | Emergency (ER) | payer BC, SELFPAY ==
[2024-09-28] VITALS (11 sets, daily range): BP systolic 154; BP diastolic 95; PULSE 73–93; RESP 16–20; TEMP 36.6; O2SAT 98–100
--- NOTE | ~2024-09-28 | XR_ITS ---
CHEST RADIOGRAPH, PA AND LATERAL CLINICAL HISTORY: chest tightness . COMPARISON: 08/02/2022 TECHNIQUE: PA and lateral views of the chest. FINDINGS The cardiomediastinal silhouette is unremarkable. The lungs are clear. IMPRESSION: No focal infiltrate or effusion. Reviewed, dictated and finalized at location A.
--- NOTE | 2024-09-28 18:48 | ECG_ITS ---
Test Date: 2024-09-28 18:51:55 Measurements Intervals [place] Rate: 82 P: 56 ME: 160 QRS: 11 QRSD: 112 T: 24 QT: 369 QTc: 432 Interpretive Statements SINUS RHYTHM INCOMPLETE RIGHT BUNDLE BRANCH BLOCK BORDERLINE ECG No previous ECG available for comparison Electronically Signed On 09-28-2024 19:54:56 CDT by Alexey Gonsalez D.O.
--- OUTSIDE RECORDS SUMMARY | 2024-09-28 18:48 | XMS_ITS | Clinical Summary ---
Author Organization [facility] Address [address] [place] [address] Care Team Providers Care Seed Production Field Supervisor Name Role Phone Richard Frey MD Primary Care Provider Source Comments [facility],non-owned Affiliates and Associated Physician Practices is amultiple site organization consisting of ambulatory clinics and hospital sitesin [place], [place] and [place]. This disclosure is being madepursuant to the Care Everywhere program and may not contain all information available regarding this patient. Last updated 17.[facility] Allergies Active Allergy Reactions Criticality Noted Date Comments Azithromycin 01/30/2016 Medications * Be aware that medications may not be up to date on this document. Alwaysverify current medications with the patient. Lansoprazole (PREVACID PO) Active Loratadine (CLARITIN PO) Active Triamcinolone Acetonide (NASACORT AQ NA) Act tr[place] Social History Tobacco Use Types Packs/Day Years Used Date Smoking Tobacco: Never Assessed Comments Unknown Sex and Gender Information Value Date Recorded Sex Assigned at Not on file Legal Sex Female 6:03 AM HOSPICE HOME HEALTH AIDE Gender Identity Not on file Sexual Orientation Not on file Last Filed Vital Signs Vital Sign Reading Time Taken Comments Blood Pressure 106/70 01/30/2016 9:46 AM HOSPICE HOME HEALTH AIDE Pulse 80 01/30/2016 9:46 AM HOSPICE HOME HEALTH AIDE Temperature 36.9 C (98.4 F) 01/30/2016 9:46 AM HOSPICE HOME HEALTH AIDE Respiratory Rate 16 01/30/2016 9:46 AM HOSPICE HOME HEALTH AIDE Oxygen Saturation - - Inhaled Oxygen Concentration - - Weight 78.5 kg (173 lb) 01/30/2016 9:46 AM HOSPICE HOME HEALTH AIDE Height 157.5 cm (5' 2) 01/30/2016 9:46 AM HOSPICE HOME HEALTH AIDE Body Mass Index 31.64 01/30/2016 9:46 AM HOSPICE HOME HEALTH AIDE Plan of Treatment Health Maintenance Due Date Last Done Comments COLOGUARD (AGES 45-75) - COL ON CA SCREENING 1979 COLON MONITORING 1979 COLONOSCOPY - COLON CA SCREENING 1979 CT COLONOGRAPHY - COLON CA SCREENING 1979 Colorectal Cancer Screening 1979 FIT - COLON CA SCREENING 1979 FLEX SIG - COLON CA SCREENING 1979 LIPID TESTING 1979 MAMMOGRAM 1979 HIV SCREENING 04/23/1994 HEPATITIS C SCREENING 04/19/1997 DTAP/TDAP/TD VACCINES (1 - Tdap) 04/23/1998 HEPATITIS B VACCINE (1 of 3 - 19+ 3-dose series) 04/23/1998 PAP SMEAR 04/23/2000 HPV VACCINE (1 - 3-dose SCDM series) 04/23/2006 COVID-19 VACCINE (1 - 2023-2 5 season) 2023 DEPRESSION SCREENING 02/19/2024 INFLUENZA VACCINE (#1) 2024 ZOSTER VACCINE (1 of 2) 04/23/2029 HIB VACCINE Aged Out No longer eligi ble based on patient's age to complete this topic MENINGOCOCCAL (Group B) VACC INE SHARED DECISION-MAKING Aged Out No longer eligibl e based on patient's age to complete this topic MENINGOCOCCAL GROUPS A/C/Y/W VACCINE Aged Out No longer eligible b ased on patient's age to complete this topic PNEUMOCOCCAL VACCINE Aged Out No long er eligible based on patient's age to complete this topic Insurance [employer] Care Teams Seed Production Field Supervisor Relationship Specialty Start Date End Date Richard Frey MD [address] [place] [address] PCP - General Internal Medicine 01/30/16
[2024-09-28 19:05] LABS: Hematocrit 41.6 % (37.0-47.0); Hemoglobin 13.6 g/dL (12.0-15.0); Immature Granulocyte Percent A 0.5 % (0-0.5); Lymphocytes Absolute Auto 2.12 K/mm3 (0.9-3.2); Mean Corpuscular HGB Conc 32.7 g/dl (32-36); Mean Corpuscular Hemoglobin 28.1 pg (26-34); Mean Corpuscular Volume 86.0 fl (80-100); Nucleated Red Blood Cells Absolute Auto 0.000 K/mm3 (0.0-0.012); Nucleated Red Blood Cells Perc 0.0 % (0.0-0.2); Platelet Count Result 221 k/mm3 (150-375); Red Blood Count 4.84 M/mm3 (4.2-5.4); White Blood Count 7.8 K/mm3 (4.5-10.0)
[2024-09-28] MEDS: ASPIRIN 81 MG CHEWABLE TABLET 324 MG PO (19:07)
[2024-09-28 19:21] LABS: INR 1.0; Prothrombin Time 13.1 Seconds (11.1-14.7)
[2024-09-28 19:22] LABS: Partial Thromboplastin Time 32.1 Seconds (22.3-36.8)
--- OUTSIDE RECORDS SUMMARY | 2024-09-28 19:28 | XMS_ITS | Clinical Summary ---
Author Organization [facility] [employer] Address [address] [place] [address] Care Team Providers Care Jig Builder Helper Name Role Phone Richard Frey MD Primary Care Provider Source Comments [facility],non-owned Affiliates and Associated Physician Practices is amultiple site organization consisting of ambulatory clinics and hospital sitesin [place], [place], [place] and [place]. This disclosure is being madepursuant to the Care Everywhere program and may not contain all information available regarding this patient. Last updated 17.[facility] [employer] Allergies Active Allergy Reactions Criticality Noted Date [...] on file Legal Sex Female 6:03 AM FUR GLAZER Gender Identity Not on file Sexual Orientation Not on file Last Filed Vital Signs Vital Sign Reading Time Taken Comments Blood Pressure 106/70 01/30/2016 9:46 AM FUR GLAZER Pulse 80 01/30/2016 9:46 AM FUR GLAZER Temperature 36.9 C (98.4 F) 01/30/2016 9:46 AM FUR GLAZER Respiratory Rate 16 01/30/2016 9:46 AM FUR GLAZER Oxygen Saturation - - Inhaled Oxygen Concentration - - Weight 78.5 kg (173 lb) 01/30/2016 9:46 AM FUR GLAZER Height 157.5 cm (5' 2) 01/30/2016 9:46 AM FUR GLAZER Body Mass Index 31.64 01/30/2016 9:46 AM FUR GLAZER Plan of Treatment Health Maintenance Due Date [...] this topic Insurance [employer] Care Teams Jig Builder Helper Relationship Specialty Start Date End Date Richard Frey MD [address] [place] [address] PCP - General Internal Medicine 01/30/16
[2024-09-28 19:30] LABS: Alanine Aminotransferase 15 U/L (6-35); Albumin Level 4.6 g/dL (3.5-5.1); Alkaline Phosphatase 57 U/L (38-126); Anion Gap 9 mmol/L (4-12); Aspartate Amino Transferase 23 U/L (14-36); Bilirubin,Total 0.4 mg/dL (0.2-1.3); Blood Urea Nitrogen 7 mg/dL (7-17); Calcium 9.0 mg/dL (8.4-10.2); Carbon Dioxide 25 mmol/L (22-30); Chloride 104 mmol/L (98-107); Estimated CRCL calculation 78 ml/min; Estimated Glomerular Filt Rate > 60; Glucose 97 mg/dL (65-110); Lipase 76 U/L (23-300); Potassium 3.4 mmol/L (3.4-5.0); Sodium 138 mmol/L (137-145); Total Protein 7.6 g/dL (6.3-8.2)
[2024-09-28 19:37] LABS: Troponin I < 0.012 ng/mL (0.000-0.034)
--- NOTE | 2024-09-28 19:37 | ED.CHESTPAIN ---
HPI - Chest Pain General Chief Complaint: Chest Pain Stated Complaint: chest tightness Time Seen by Provider: 09/28/24 19:07 History of Present Illness HPI narrative: 44-year-old female with a history of dyslipidemia, asthma, fibromyalgia. Patient presents the emergency department with some chest discomfort she describes a pressure in the substernal region. States that began at work and slowly abated throughout the evening. Was concerned what to make sure she is not having any acute issues. She states she gets random aches and pains throughout her body but is not sure what is new and what is related to her other chronic symptoms and fibromyalgia. Denies any nausea, vomiting, calf cramping, leg swelling, leg asymmetry, shortness a breath. No traumatic injuries. She states she has been having stress at work and could be anxious. 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 Patient denies any systemic symptoms such as fever, chills, night sweats. No shortness of breath at rest, no pleuritic component to her chest discomfort. No surgical procedures or recent long travel/immobilization. Related Data Home Medications ?Medication ?Instructions ?Recorded ?Confirmed ?Last Taken ?Type cetirizine 10 mg tablet (Zyrtec) 10 mg PO DAILY 09/20/21 07/24/24 Unknown History lansoprazole 15 mg capsule,delayed 15 mg PO BID 08/02/22 07/24/24 Unknown History release loratadine 10 mg tablet (Claritin) 10 mg PO DAILY 08/02/22 07/24/24 Unknown History multivitamin 1 tablet PO DAILY 08/22/22 07/24/24 Unknown History calcium carbonate 600 mg PO DAILY 07/24/24 07/24/24 Unknown History guaifenesin 200 mg tablet 200 mg PO QID 07/24/24 07/24/24 Unknown History lactobacillus combination no.4 3 3,000 mmu cells PO DAILY 07/24/24 07/24/24 Unknown History billion cell capsule (Probiotic) selenium 200 mcg capsule 200 mcg PO DAILY 07/24/24 07/24/24 Unknown History Allergies Allergy/AdvReac Type Severity Reaction Status Date / Time azithromycin Allergy Unknown other Verified 09/28/24 18:57 clarithromycin Allergy Unknown Unknown Verified 09/28/24 18:57 Review of Systems Review of Systems: As reviewed [facility] Past Medical History Medical History Mild persistent asthma Lower abdominal pain of unknown etiology Surgical History Surgical History H/O wisdom tooth extraction History of D&C Family History Family History Father Family history of elevated blood lipids Social History Social History Smoking packs per day: 0 Smoking cigarettes per day: 0.0 Years smoked: 0 Smoking pack-years: 0.00 Smoking status: Never smoker Second hand tobacco smoke exposure: No Alcohol intake: current Drinks per week: 2 Substance use: never Substance use type: does not use Do You Feel Safe in your Home?: Yes Lack of Transportation: No Lack of Food: Never True Current Housing: I Have Housing Concerned About Future Housing: No Difficulty Paying Gas/Electric Bills: No Difficulty Paying for Meds: No Currently Unemployed: No Education: Bachelor's Degree Difficulty w/ Childcare or Family Care: No Living arrangements: with family Occupation/Education: occupation Gender identity (if verbalized by the patient): Female Spiritual care concerns: No Agree to blood products: Yes Exam Narrative: GENERAL: [Well-appearing, well-nourished, and in no acute distress.] HEAD: [Normocephalic, atraumatic.] EYES: [PERRLA and EOMI.] ENT: Nares clear, no rhinorrhea or epistaxis. Mucous membranes moist. NECK: Supple. CHEST: [Clear to auscultation. No respiratory distress.] HEART: [Regular rate and rhythm]. No murmur heard. [Normal peripheral pulses.] ABDOMEN: [Soft, nondistended], [nontender], [No rigidity or guarding] EXTREMITIES: Normal range of motion. [No edema.] SKIN: Warm, dry, no rash. NEURO: [No focal deficits]. Alert and oriented [x3.] PSYCH: [Normal mood and affect.] Course Vital Signs Vital signs: Vital Signs Temperature 36.6 C 09/28/24 18:52 Pulse Rate 93 09/28/24 18:52 Respiratory Rate 18 09/28/24 18:52 Blood Pressure 154/95 H 09/28/24 18:52 Pulse Oximetry 100 09/28/24 18:52 Oxygen Delivery Room Air 09/28/24 18:52 Temperature 36.6 C 09/28/24 18:52 Pulse Rate 78 09/28/24 22:00 Respiratory Rate 18 09/28/24 22:00 Blood Pressure 154/95 H 09/28/24 18:52 Pulse Oximetry 100 09/28/24 22:00 Oxygen Delivery Room Air 09/28/24 18:57 MDM - Chest Pain MDM Narrative Medical decision making narrative: 44-year-old female with a history of dyslipidemia, asthma, fibromyalgia. Patient presents the emergency department with some chest discomfort she describes a pressure in the substernal region. States that began at work and slowly abated throughout the evening. Was concerned what to make sure she is not having any acute issues. She states she gets random aches and pains throughout her body but is not sure what is new and what is related to her other chronic symptoms and fibromyalgia. Denies any nausea, vomiting, calf cramping, leg swelling, leg asymmetry, shortness a breath. No traumatic injuries. She states she has been having stress at work and could be anxious. 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 Patient denies any systemic symptoms such as fever, chills, night sweats. No shortness of breath at rest, no pleuritic component to her chest discomfort. No surgical procedures or recent long travel/immobilization. Patient is not in any acute physical or respiratory distress very pleasant and cooperative. She has reassuring vital signs without any significant hypertension, no tachycardia, fever, hypoxia. Strong symmetric pulses, clear breath sounds with no murmur. Normal pulse on examination in all 4 extremities. Differential includes musculoskeletal chest discomfort, anxiety, ACS less likely, thromboembolic disease such as PE less likely. Broad workup was ordered including serial EKG, chest x-ray, D-dimer, CBC, CMP and troponin levels. Patient placed on cardiac rehabilitation specialist and pulse oximetry. Workup was reassuring. No leukocytosis or anemia. Normal platelet count. Negative D-dimer. Normal electrolytes, normal creatinine, normal kidney function and liver function panel. Troponin negative. 3 hour troponin negative. Chest x-ray shows no cardiopulmonary process. EKG is nonischemic. Patient is reassured and her vital signs are stable. Safe for discharge home with regular PCP follow-up. Medical Records Data Attestation: I reviewed the patient's medical records. Lab Data Attestation: I reviewed the patient's lab results. 09/28/24 19:00 09/28/24 19:00 Labs: Lab Results 09/28/24 09/28/24 Range/Units 19:00 21:39 WBC 7.8 (4.5-10.0) K/mm3 RBC 4.84 (4.2-5.4) M/mm3 Hgb 13.6 (12.0-15.0) g/dL Hct 41.6 (37.0-47.0) % MCV 86.0 (80-100) fl MCH 28.1 (26-34) pg MCHC 32.7 (32-36) g/dl RDW 12.6 (11.5-14.5) % Plt Count 221 (150-375) k/mm3 MPV 9.0 (7.4-10.4) fl Immature Gran % (Auto) 0.5 (0-0.5) % Neut % (Auto) 65.3 (45.5-73.1) % Lymph % (Auto) 27.1 (18.3-44.2) % Williamson % (Auto) 5.0 (2.6-8.5) % Eos % (Auto) 1.5 (0-4.4) % Baso % (Auto) 0.6 (0.2-1.2) % Lymph # (Auto) 2.12 (0.9-3.2) K/mm3 Williamson # (Auto) 0.4 (0.1-0.6) K/mm3 Eos # (Auto) 0.1 (0-0.3) K/mm3 Baso # (Auto) 0.1 (0.0-0.1) K/mm3 Abs Immat Gran (auto) 0.04 H (0.00-0.031) K/mm3 Absolute Neuts (auto) 5.1 (1.3-6.7) K/mm3 Absolute Nucleated RBC 0.000 (0.0-0.012) K/mm3 Nucleated RBC % 0.0 (0.0-0.2) % PT 13.1 (11.1-14.7) Seconds INR 1.0 APTT 32.1 (22.3-36.8) Seconds D-Dimer < 0.27 (<0.48) ug/mL Sodium 138 (137-145) mmol/L Potassium 3.4 (3.4-5.0) mmol/L Chloride 104 (98-107) mmol/L Carbon Dioxide 25 (22-30) mmol/L Anion Gap 9 (4-12) mmol/L BUN 7 (7-17) mg/dL Creatinine 0.79 (0.7-1.0) mg/dL Estim Creat Clear Calc 78 ml/min Estimated GFR > 60 (59 - ) Glucose 97 (65-110) mg/dL Calcium 9.0 (8.4-10.2) mg/dL Total Bilirubin 0.4 (0.2-1.3) mg/dL AST 23 (14-36) U/L ALT 15 (6-35) U/L Alkaline Phosphatase 57 (38-126) U/L Troponin I < 0.012 < 0.012 (0.000-0.034) ng/mL Total Protein 7.6 (6.3-8.2) g/dL Albumin 4.6 (3.5-5.1) g/dL Lipase 76 (23-300) U/L Imaging Data Attestation: I personally reviewed and interpreted this imaging study as follows: My impression: Impressions Chest X-Ray 09/28/24 19:33 IMPRESSION: No focal infiltrate or effusion. Discharge Plan Discharge Clinical Impression: Chest tightness Patient Disposition: Home Condition: Stable Instructions: Antibiotic Form, Chest Pain (ED) Additional Instructions: All of your laboratory studies are normal and showed no acute cardiac disease or damage. No signs of a blood clot. No signs of pneumonia or collapsed lung. No acute explanations for symptoms but emergent concerns are ruled out. Follow-up with regular doctor and return with any emergent issues or concerns. Patient Language: Slovenian Prescriptions: No Action cetirizine [Zyrtec] 10 mg Tablet 10 mg PO DAILY Probiotic 3 billion cell capsule 3,000 mmu cells PO DAILY Rx Instructions: administer with a meal calcium carbonate 600 mg calcium (1,500 mg) tablet 600 mg PO DAILY selenium 200 mcg capsule 200 mcg PO DAILY guaifenesin 200 mg tablet 200 mg PO QID albuterol sulfate 2.5 mg /3 mL (0.083 %) solution for nebulization 2.5 mg inhalation Q4-6H PRN (Reason: shortness of breath or wheezing) Qty: 75 1RF loratadine [Claritin] 10 mg tablet 10 mg PO DAILY lansoprazole 15 mg capsule,delayed release(DR/EC) 15 mg PO BID Ubrelvy 100 mg tablet 100 mg PO ONCE PRN (Reason: migraine headache) Qty: 14 8RF Rx Instructions: as a single dose; may repeat once in >=2 hours after first dose if needed multivitamin Tablet 1 tablet PO DAILY albuterol sulfate [ProAir HFA] 90 mcg/actuation HFA aerosol inhaler 1 puff INHALATION Q4H PRN (Reason: Shortness Of Breath Or Wheezing) Qty: 6.7 3RF Rx Instructions: INHALE 2 PUFFS BY MOUTH EVERY 4-6 HOURS NEEDED cyclobenzaprine 10 mg tablet 10 mg PO TID PRN (Reason: muscle spasm) Qty: 30 0RF Rx Instructions: Do not take while driving. May cause drowsiness. Follow-up/Referrals: Kishan Blanc DO [Primary Care Provider] - Time of Disposition: 22:48
--- NOTE | 2024-09-28 21:47 | ECG_ITS ---
Test Date: 2024-09-28 21:47:40 Measurements Intervals [place] Rate: 74 P: 48 [place]: 140 QRS: -1 QRSD: 103 T: 29 QT: 426 QTc: 473 Interpretive Statements SINUS RHYTHM INCOMPLETE RIGHT BUNDLE BRANCH BLOCK BASELINE ARTIFACT- I, III, AVR, AVL, AVF BORDERLINE ECG Compared to ECG 09/28/2024 18:51:55 No significant changes Electronically Signed On 09-29-2024 09:05:36 CDT by Alexey Gonsalez D.O.
[2024-09-28 22:16] LABS: Troponin I < 0.012 ng/mL (0.000-0.034)
== END 2024-09-28 23:01 | disposition home or self-care (01) ==
PROVIDERS: Emergency Medicine; Emergency Provider Student in an Organized Health Care Education/Training Program; PCP Internal Medicine
DX: R07.89 Other chest pain (principal); J45.30 Mild persistent asthma, uncomplicated; E78.5 Hyperlipidemia, unspecified; M79.7 Fibromyalgia; I45.10 Unspecified right bundle-branch block
CPT/HCPCS: 36415; 71046; 80053; 83690; 84484; 85025; 85380; 85610; 85730; 93005; 99284; A9270

== ENCOUNTER 2024-11-11 08:05 | Outpatient (CLI) | payer BC, SELFPAY ==
--- OUTSIDE RECORDS SUMMARY | 2024-11-11 08:17 | XMS_ITS | Clinical Summary ---
Author Organization [facility] [employer] Address [address] [place] [address] Care Team Providers Care Unstacker Name Role Phone Richard rFey MD Primary Care Provider Source Comments [facility],non-owned Affiliates and Associated Physician Practices is amultiple site organization consisting of ambulatory clinics and hospital sitesin [place], [place] and [place]. This disclosure is being madepursuant to the Care Everywhere program and may not contain all information available regarding this patient. 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[employer] Gender Identity Not on file Sexual Orientation Not on file Last Filed Vital Signs Vital Sign Reading Time Taken Comments Blood Pressure 106/70 01/30/2016 9:46 AM [employer]CE ADJUSTMENT SUPERVISOR Pulse 80 01/30/2016 9:46 AM [employer]CE AD[employer]MENT SUPERVISOR Temperature 36.9 C (98.4 F) 01/30/2016 9:46 AM [employer]CE AD[employer]MENT SUPERVISOR Respiratory Rate 16 01/30/2016 9:46 AM [employer]CE ADJUSTMENT SUPERVISOR Oxygen Saturation - - Inhaled Oxygen Concentration - - Weight 78.5 kg (173 lb) 01/30/2016 9:46 AM [employer]CE ADJUSTMENT SUPERVISOR Height 157.5 cm (5' 2) 01/30/2016 9:46 AM FORCE ADJUSTMENT SUPERVISOR Body Mass Index 31.64 01/30/2016 9:46 AM FORCE ADJUSTMENT SUPERVISOR Plan of Treatment Health Maintenance Due Date [...] VACCINE (1 - 3-dose SCDM series) 04/23/2006 DEPRESSION SCREENING 02/19/2024 COVID-19 VACCINE (1 - 2023-2 5 season) 2024 INFLUENZA VACCINE (#1) 2024 ZOSTER VACCINE (1 [...] this topic Insurance [employer] Care Teams Unstacker Relationship Specialty Start Date End Date Richard Frey MD [address] [place] [address] PCP - General Internal Medicine 01/30/16
--- NOTE | 2024-11-11 13:33 | WPDPFTINT ---
PFT Procedure Performed PFT Procedure Performed Spirometry with Pre/Post Bronchodilator Plethysmography (Lung Vol) Diffusing Cap (DLCO) Flow Vol Loop PFT Interpretation This is a pulmonary function test with pre and post-bronchodilator spirometry, plethysmography and diffusing capacity. The test was performed and results interpreted in accordance with the 2019 and 2005 ATS/ERS Task Force guidelines respectively using the Global Lung Function Initiative-2012 reference equations. Patient demonstrated good effort and cooperation. Reproducibility criteria were met. The quality of the pre bronchodilator spirometry maneuver was Grade B and post bronchodilator spirometry maneuver was Grade A. Findings: Spirometry: The contour the inspiratory and expiratory flow tracing are normal. The pre bronchodilator FVC is 3.05 L, 92% predicted. The pre bronchodilator FEV1 is 2.39 L, 89% predicted. The pre bronchodilator FEV1: FVC ratio is 78%. The post bronchodilator FVC is 3.08 L, representing 1% increase. The post bronchodilator FEV1 is 2.31 L, representing a 3% decrease. The post bronchodilator FEV1: FVC ratio is 75%. Plethysmography: The total lung capacity is 4.19 L, 89% predicted. The functional residual capacity is 1.66 L, 64% predicted. The residual volume is 1.08 L, 69% predicted. Diffusing capacity: The diffusing capacity unadjusted for hemoglobin and carboxyhemoglobin is 18.4, 82% predicted. The diffusing capacity adjusted for alveolar volume is 5.59, 117% predicted. Impression: The spirometry is normal without evidence of an obstructive abnormality. There is no significant improvement after inhaling a single dose of albuterol. The lung volumes are normal. The diffusing capacity is normal. There are no prior studies for comparison
== END 2024-11-11 08:06 | disposition home or self-care (01) ==
PROVIDERS: PCP Internal Medicine; Visit Provider Clinical Nurse Specialist
DX: J45.30 Mild persistent asthma, uncomplicated (principal)
CPT/HCPCS: 94060; 94726; 94729